=== PATIENT | female | born 1990 | race American Indian/Alaskan Native ===

== ENCOUNTER 2025-09-02 15:02 | Emergency (ER) | payer OTHER ==
[~2025-09-02] VITALS: Ht 160 cm; Wt 50.8 kg
[2025-09-02] MEDS ORDERED: KETOROLAC TROMETHAMINE 60 MG VIAL IM ONE (16:30)
[2025-09-02] MEDS ORDERED: DEXAMETHASONE SODIUM PHOSPHATE 4 MG/ML VIAL IM ONE (16:30)
[2025-09-02] MEDS ORDERED: ORPHENADRINE CITRATE 30 MG/ML AMPUL IM ONE (16:30)
[2025-09-02] MEDS ORDERED: ACETAMINOPHEN 500 MG GEL..CAP PO ONE (16:30)
[2025-09-02] MEDS ORDERED: PEPCID AC20 MG PO (17:08)
[2025-09-02] MEDS ORDERED: KETO10TA2 PO (17:08)
== END 2025-09-02 17:27 | disposition home or self-care (01) ==
LOC: ER 15:02
DX: S00.33XA Contusion of nose, initial encounter (principal); X58.XXXA Exposure to other specified factors, initial encounter; Y93.89 Activity, other specified; Y92.89 Other specified places as the place of occurrence of the external cause; Y99.9 Unspecified external cause status